=== PATIENT | female | born 1980 | race Caucasian/White ===

== ENCOUNTER → 2016-09-20 | Outpatient (CLI) | payer MEDICAID ==
[~2016-09-20] MED LIST: BACITRACIN15 G1 TP; CALTRATE-600 D600 MG PO; NORCO 5-325 TA1 EACH PO; SYNTHROID125 MCG PO
== END | disposition home or self-care (01) ==
LOC: PTH.S 11:11
DX: Z01.812 Encounter for preprocedural laboratory examination (principal)

== ENCOUNTER 2016-09-25 05:43 | Observation (INO) | payer MEDICAID ==
[~2016-09-25] VITALS: Ht 162.6 cm; Wt 75.4 kg
[2016-09-27] MEDS ORDERED: NORCO 5-325 TA1 EACH PO (19:17)
[2016-09-27] MEDS ORDERED: SYNTHROID125 MCG PO (19:17)
[2016-09-27] MEDS ORDERED: BACITRACIN15 G1 TP (19:18)
[2016-09-27] MEDS ORDERED: CALTRATE-600 D600 MG PO (19:18)
--- NOTE | 2016-10-08 10:17 | HP ---
ADMIT: 09/25/2016 RM/LOC: [facility] MR#: [id number] [address] YOSSI AMATO [address] [place] [address] Pre-OP History and Physical SEX: F AGE: 36 : 1980 DATE OF SERVICE: HISTORY OF PRESENT ILLNESS: Yossi is 36 years old. She is admitted at this time for total thyroidectomy. She has developed thyromegaly and multiple thyroid nodules. She also has developed hypothyroidism with symptoms of weight gain over 50 pounds, depression, and fatigue. Laboratory studies, in addition to identifying hypothyroid as evidenced by TSH of 18.69 and a low T4, shows thyroglobulin antibodies and thyroid peroxidase antibodies which are greater than 900. Treatment options have been discussed. Total thyroidectomy has been elected to evaluate the nature of the multiple thyroid nodules. Her examination and ultrasound both show evidence of cervical adenopathy. These too will be evaluated at time of neck exploration. The rationale for the procedure, the risks involved, and the postop course have been discussed. She will require lifelong thyroid hormone replacement. This is a very likely necessity due to her hypothyroidism and antibody levels which have caused reduction in the function of the thyroid gland and will likely not be reversed, also necessitating lifelong thyroid hormone replacement. She is in good understanding of the rationale for the procedure. The risks involved, including the risks of anesthesia, risks to the recurrent laryngeal nerve and parathyroid glands. She is admitted at this time for general anesthesia. MEDICATIONS: Prior to admission, Synthroid 125 mcg daily. ALLERGIES: NO MEDICINES KNOWN. PAST MEDICAL HISTORY: sections. REVIEW OF SYSTEMS: No known lower respiratory, cardiovascular, gastrointestinal, genitourinary, hematologic, or neurologic disorders. SOCIAL HISTORY: She drinks alcohol socially, caffeine daily, and also does use tobacco daily. FAMILY HISTORY: No known anesthetic complications. No coagulopathies. No known thyroid malignant disease. PHYSICAL EXAMINATION: GENERAL: A 36-year-old. HEENT: Pupils are equal. Conjunctivae clear. No exophthalmos nor lid retraction. Ear canals, TMs, and middle ears normal. Nose, mouth, pharynx, good symmetry, structure, and function. ADMIT: 09/25/2016 RM/LOC: [facility] MR#: [id number] [address] [place] [address] Pre-OP History and Physical SEX: F AGE: 36 : 1980 NECK: Fullness overlying region of the thyroid gland without distinct mass palpable. Cervical adenopathy palpable, levels 2 and 2, bilateral, nontender. LUNGS: Clear. HEART: Rhythm regular. EXTREMITIES: Normal. IMPRESSION: 1. Thyromegaly with multiple thyroid nodules. 2. Dominguez's thyroiditis with secondary hypothyroidism. 3. Cervical adenopathy. PLAN: Thyroidectomy. Uriah Gee MD/ john JOB #: [id number] CC: Rajiv Turpin, Attending Physician UNKNOWN, Family Physician
--- NOTE | 2016-10-20 14:27 | OR ---
ADMIT: 09/25/2016 RM/LOC: [facility] MR#: [id number] [address] YOSSI AMATO [address] [place] [address] Operative/Delivery Room Report SEX: F AGE: 36 : 1980 SURGERY DATE: 09/25/2016 SURGEON: Rajiv Turpin MD PREOPERATIVE DIAGNOSES: 1. Multinodular goiter. 2. Dominguez's thyroiditis. POSTOPERATIVE DIAGNOSES: 1. Multinodular goiter. 2. Dominguez's thyroiditis. PROCEDURES: 1. Total thyroidectomy. 2. Recurrent laryngeal nerve EMG monitoring for 2 hours. PUBLIC ACCOUNTANT: Uriah Gee MD ANESTHESIA: General endotracheal. COMPLICATIONS: None. BLOOD LOSS: 50 mL. FINDINGS: 1. Stimulated intact recurrent laryngeal nerves at the conclusion of the case. 2. Four parathyroid glands found and left in situ. INDICATIONS: The patient is a pleasant 36-year-old female with a history of multinodular goiter as well as history of hypothyroidism. Due to the heterogeneity of her gland, the multinodular goiter, and the need for long- term monitoring, she elected for total thyroidectomy. We discussed risks, benefits, and alternatives and she provided informed consent. PROCEDURE IN DETAIL: The patient was brought from preoperative area to the operating suite, placed on table in supine position. All pressure points were padded. Time-out was performed to correctly identify the patient and the procedure. General endotracheal anesthesia was initiated. The recurrent laryngeal nerve monitoring with the NIM system was attached and calibrated. The neck was marked, injected with 1% lidocaine with epinephrine and shoulder roll was placed. She was then prepped and draped in the usual sterile fashion. Incision was made with 15 blade and carried down through the subcutaneous fat with cautery. The anterior jugular veins were suture ligated and the strap muscles exposed. Superior and inferior subplatysmal flaps were elevated. The straps were divided in the midline with cautery and we began working on the left side initially. The anterior and then lateral portions of the thyroid lobes were exposed. The inferior and superior poles were exposed. Inferior and superior pole vessels were taken down with cautery. The inferior parathyroid ADMIT: 09/25/2016 RM/LOC: [facility] MR#: [id number] [address] YOSSI AMATO [address] [place] [address] Operative/Delivery Room Report SEX: F AGE: 36 : 1980 gland was identified first, left in situ. Thereafter, the superior gland was left in situ. Careful dissection was then performed in the area of Weinstein's ligament and recurrent laryngeal nerve until this was identified, confirmed with the probe and then carefully dissected off the gland and Weinstein's ligament. Weinstein's ligament was then taken down to the level of the isthmus in the midline and the gland was freed. Spot hemostasis was achieved with careful cautery. The right side was then addressed in the same fashion. Parathyroid glands were again exposed as well as the recurrent laryngeal nerve and the gland was elevated out of the wound without significant difficulty. Careful dissection had been performed on either side to ensure the integrity of the nerves as well the glands, which were all re-identified at the conclusion of the case after irrigation and stimulated intact bilaterally. Hemostasis was again achieved with spot cautery and a small amount of SNoW Surgicel material was left in place over the nerves. The straps were then closed in the midline with 3-0 chromic interrupted sutures followed by platysma closure with the same suture. Thereafter, a running horizontal Prolene suture was placed through the skin and the drain brought out from the left lateral side of the wound. The drain was attached to a LUCY bulb. Ointment was applied and a small dressing. This concluded the case. The patient was returned to the care of Anesthesia for extubation and transferred to the recovery room in stable condition. Rajiv Turpin MD/ john JOB #: [id number] CC: Uriah Gee, Attending Physician FAMILY PHYSICIAN, Family Physician
== END 2016-09-26 11:49 | disposition home or self-care (01) ==
LOC: EDBD → WOR 05:43 → 6PED 05:43 → WOR 05:43 → 6PED 09:38
PROVIDERS: ADMIT Otolaryngology
PROC: 0GTK0ZZ Resection of Thyroid Gland, Open Approach (ICD-10-PCS; principal; 2016-09-25)
DX: E06.3 Autoimmune thyroiditis (principal); K21.9 Gastro-esophageal reflux disease without esophagitis; F17.200 Nicotine dependence, unspecified, uncomplicated; Z90.49 Acquired absence of other specified parts of digestive tract; Z98.890 Other specified postprocedural states; Z79.899 Other long term (current) drug therapy